=== PATIENT | male | born 1970 | race Caucasian/White ===

== ENCOUNTER → 2016-07-20 | Outpatient (CLI) | payer OTHER ==
[~2016-07-20] MED LIST: ALBU1AER9 INH; GLC500 PO; LANS30CA12 PO; LXP/20 PO
--- NOTE | 2016-07-20 15:50 | DIAGNOSTIC IMAGING REPORT ---
LEFT THIGH ULTRASOUND CLINICAL HISTORY: Left leg pain after fall. COMPARISON STUDY: None. FINDINGS: There is a a 2.5 x 1.8 x 0.5 cm focus of fluid within the mid hamstring muscles. This consistent with an intramuscular tear. In addition, deep to the junction of the left gluteal/proximal posterior thigh there is an 11.3 x 3.3 x 7.7 cm complex fluid collection. This favors a hematoma surrounding the torn hamstring tendon complex. The serpiginous echogenic material within this fluid collection likely represents the retracted and torn tendon. IMPRESSION: 1. Complex fluid collection deep to the left gluteal/proximal posterior thigh junction which measures 11.3 x 7.7 x 3.3 cm. This favors a hematoma surrounding a full-thickness tear of the retracted hamstring tendon complex. This can be confirmed with MRI. 2. There is also a 2.5 x 1.8 x 0.5 cm intramuscular fluid collection within the mid hamstring muscles. This is consistent with an intramuscular tear/hematoma. Electronically signed by: Meliton Arce M.D. 07/20/2016 3:48 PM Dictated Date/Time: 07/20/2016 3:38 PM
== END | disposition home or self-care (01) ==
LOC: C.ULTRBC 14:57
PROVIDERS: ATTEND Internal Medicine Geriatric Medicine
DX: M79.605 Pain in left leg (principal); R93.6 Abnormal findings on diagnostic imaging of limbs

== ENCOUNTER → 2017-07-16 | Outpatient (CLI) | payer OTHER ==
--- NOTE | 2017-07-17 05:13 | PAP/PSG TECHNICIAN REPORT ---
[facility] [place] [facility] Polysomnogram Report Study name: None Report date: 07/17/2017 Study date: 07/16/2017 Referring Physician: Jocelyne Simon PA-C Name: PRAMOD PEDRAZA Interpreting Physician: Ac Wolfe M.D. Date of : 1970 [place]: Hanane Bustamante RPSGT. Sex: Male Age: 47 Study Type: PSG PAP Weight: 321 lbs 21.5 IN Height: 47 years, Height 5' 10" Neck Circum: BMI: 46.05 Medications: BUPROPION 100 MG, ESCITALORPAM OXALATE 20 MG, FAMOTIDINE 20 MG, OMEPRAZOLE 20 MG, LISINOPRIL HYDROCHLOROTHIAZIDE 20-12.5 MG, METFORMIN 500 MG, ROPINIROLE 0.5 MG Patient History 47 yr-old male here for a CPAP update study. He has been using CPAP for many years and has no problems. He states that he cannot sleep without it. He has gained some weight since the last study. He is back to assess his pressure settings and to satisfy DOT requirements. His [place] scale is 0. The test was started on room air and 4 CMH2O. The pressure was then increased to 7 CMH2O at his request for more air. ETCO2 testing was not utilized during this study. He requested to get up at 4:30 am for work. Room 1 Parameters Monitored NPSG: E1-M2, E2-M1, Fp1-M2, Fp2-M1, F3-M2, F4-M2, F4-M1, C3-M2, C4-M2, C4-M1, O1-M2, O2-M2, O2-M1, T3-M2, T4-M1, P3-M2, P4-M1, CHIN1, CHIN2, HR, EKG, Legs, PFLOW, SNOR, FLOW, CFLOW, Tidal Volume, THOR, ABDO, SpO2, PLTH, CPRESS, ETCO2 Wave, ETCO2, pH Sleep Architecture Sleep Stages Time at Lights Off 8:45:04 PM STAGES Time (min.) TST (%) Time at Lights On 4:31:04 AM Wake 194.5 -- Total Recording Time (TRT) 466.00 min. N1 71.0 26 Total Sleep Period (TSP) 428.0 min. N2 132.0 49 Total Sleep Time (TST) 271.5min. N3 26.0 10 Awake Time 194.5 min. REM 42.5 16 Wake after Sleep Onset 156.5 min. Sleep Efficiency (SE) 58 % Sleep Onset Latency (RAY) 38.0 min. Number of Stage 1 Shifts None Awakenings 30 Stage Changes 106 Number of REM periods 2 REM 42.5 16 REM Latency 309.5 min. NREM 229.0 84 Body Position Analysis Supine Right Left Side Prone Vertical Total Sleep Time (min.) 53.9 185.7 49.6 235.35 0.0 0.0 Total Sleep Time (%) 13% 68% 18% 87 0% N/A% Total Sleep Time REM (min.) 25.5 17.0 0.0 None 0.0 0.0 Total Sleep Time NREM (min.) 10.6 168.7 49.6 None 0.0 0.0 Intermittent Wake (min.) 17.8 100.3 76.4 None 0.0 0.0 Total Sleep Period (%) 11% None None None None None Arousals Myoclonus (PLM) * Events Count Index Events Count Index Spontaneous 39 9 Events Awake (PLMW) 145 44.7 Respiratory 9 2.2 Events Asleep w/ Arousal (PLMA) 35 7.7 PLM 34 8 Events Asleep w/o Arousal (PLMS) 325 71.8 Snoring 24 5 Total Asleep 360 79.6 Total 106 23 Total 505 65 Respiratory Analysis * CA OA MA CH H RERA Total Count 0 1 0 0 58 5 59 Index 0.0 0.2 0.0 0 12.8 1 14.1 Mean Duration 0.0 12.4 0.0 0.00 16.9 18.9 16.9 Longest Duration 0.0 12.4 0.0 0.00 0.0 21.1 27.4 Respiratory Event Summary Total Supine ~Supine Right Left Prone REM NREM Apneas Count 1 0 1 1 0 N/A 0 1 Index 0.2 0 0 0.3 0.0 N/A 0 0 Hypopneas (4% Desat) Count 58 1 57 52 5 N/A 0 58 Index 12.8 1.7 15 16.8 6.0 N/A 0.0 15.2 Apneas & All Hypopneas Count 59 1 58 53 5 N/A 0 59 Index 13.0 2 15 17 6 N/A 0.0 15.5 Respiratory Events (Car[employer]amp [employer]er+All Hyp+RERA) Count 59 1 63 56 7 N/A 0 59 Index 14.1 2 16 18.1 8.5 N/A 0.0 16.8 Respiratory Related Arousal Count 9 1 10 8 2 N/A 0 10 Index 2.2 0 3 3 2 N/A 0 3 Snoring Analysis Supine Right Left Prone REM NREM Total Snore duration 34.3 min Snores count 103 803 365 N/A 25 1,246 1,271 Snore mean duration 1.6 Sec Snores index 171 259 441 N/A 35.3 326.5 280.9 TST with snoring (%) 12.6% Desaturation Event Summary: Minimum %SpO2 Event Count Mean/Min/Max Duration(sec.) Desaturation Index % Time In Bed > 90 146 22.0 / 0.1 / 57.8 32.2 59.7 86 - 90 53 16.8 / 8.0 / 37.5 17.3 40.2 81 - 85 0 N/A 0.0 0.0 76 - 80 0 N/A 0.0 0.0 71 - 75 0 N/A 0.0 0.0 66 - 70 0 N/A 0.0 0.0 61 - 65 0 N/A 0.0 0.0 56 - 60 0 N/A 0.0 0.0 51 - 55 0 N/A 0.0 0.0 < 50 0 N/A 0.0 0.0 Total REM NREM Awake <50% 0.0 min. 0.0 min. 0.0 min. 0.0 min. 51 - 60% 0.0 min. 0.0 min. 0.0 min. 0.0 min. 61 - 70% 0.0 min. 0.0 min. 0.0 min. 0.0 min. 71 - 80% 0.2 min. 0.0 min. 0.0 min. 0.2 min. 81 - 90% 183.4 min. 10.9 min. 137.6 min. 34.9 min. 91 - 100% 272.4 min. 31.6 min. 91.3 min. 149.5 min. Average 91 91 90 92 Minimum SpO2 79 87 86 79 Desaturation Event Index 20.0 2.8 30.4 11.7 # Desat. Events below 89% 102 N/A 88 14 Time(%) with Saturation below 89% 8.6 0.1 7.5 1.0 Time(min.) with Saturation below 89% 39.3 0.4 34.4 4.5 Time (mins) REM (mins) NREM (mins) % of TST SpO2 Below 90% 115 2 N113 29.4 SpO2 Below 88% 30 0 0 4 Heart Rate Analysis Min (bpm) Max (bpm) Average (bpm) Awake 51 127 74 NREM 50 84 65 REM 54 72 59 Overall 50 84 64 Supplemental O2 Values Minimum O2 level: None Value Start Time End Time [place] Comments Mr. Pedraza slept in the right, left, and supine positions. No cardiac arrhythmias were noted. PLMs were noted. No bruxism noted. CPAP was initiated at +4 CMH2O and up-titrated to a level of +14 CMH2O, Cflex 2. A Mirage Quattro full face mask size medium from [employer] was used during titration. He awoke to use the restroom one time during the night. Mr. Pedraza stated that he did not sleep as well as usual. The final report will be interpreted and signed by a sleep physician. The completed physician report will then be placed in the patient medical record. CPAP REPORT Therapy Detail Time / Page # Comment CPAP 4 cm H2O Full Face Mask Flex Pressure Relief Humidifier on 8:43:28 PM / pg. 65 CPAP 7 cm H2O Full Face Mask Flex Pressure Relief Humidifier on 8:45:22 PM / pg. 69 INCREASED PRESSURE FOR HIS REQUEST FOR MORE AIR. HE IS USED TO STARTING HIS CPAP RIGHT AT 11 CM AT HOME. CPAP 9 cm H2O Full Face Mask Flex Pressure Relief Humidifier on 10:40:22 PM / pg. 299 INCREASED FOR SNORING AND HYPOPNEAS CPAP 11 cm H2O Full Face Mask Flex Pressure Relief Humidifier on 1:09:10 AM / pg. 597 INCREASED FOR HYPOPNEAS CPAP 12 cm H2O Full Face Mask Flex Pressure Relief Humidifier on 1:57:15 AM / pg. 693 INCREASED FOR HYPOPNEAS CPAP 14 cm H2O Full Face Mask Flex Pressure Relief Humidifier on 2:22:26 AM / pg. 743 INCREASED FOR HYPOPNEAS Therapy Event: Therapy (cm H20) 4 7 9 11 12 14 Total Time at Pressure (min.) 0.3 115.0 148.8 48.1 25.2 128.6 TST at Pressure (min.) 0.0 31.8 53.3 45.1 18.7 122.6 # Periods 1 1 1 1 1 1 Sleep Onset (min.) N/A 37.7 0.0 0.0 0.0 0.0 REM Onset (min.) N/A N/A N/A N/A N/A 10.1 Sleep Efficiency % 0 27 35 93 74 95 Wakefulness (%) 100.0 72.3 64.2 6.2 25.8 4.7 Wakefulness (min.) 0.3 83.2 95.5 3.0 6.5 6.0 NREM 1 (%) 0.0 19.4 23.3 7.3 11.9 5.8 NREM 1 (min.) 0.0 22.3 34.7 3.5 3.0 7.5 NREM 2 (%) 0.0 8.3 12.5 86.5 62.3 36.3 NREM 2 (min.) 0.0 9.5 18.6 41.6 15.7 46.6 NREM 3 (%) 0.0 0.0 0.0 0.0 0.0 20.2 NREM 3 (min.) 0.0 0.0 0.0 0.0 0.0 26.0 REM (%) 0.0 0.0 0.0 0.0 0.0 33.0 REM (min.) 0.0 0.0 0.0 0.0 0.0 42.5 # Arousals N/A 41 41 6 9 9 Arousal Index N/A 77.4 46.2 8.0 28.9 4.4 # Snore N/A 89 267 436 196 283 Snore Index N/A 167.9 300.6 580.1 629.7 138.5 AHI N/A 15.1 18.0 37.3 16.1 1.0 AHI Supine N/A N/A N/A N/A N/A 1.7 AHI Non-Supine N/A 15.1 18.0 37.3 16.1 0.7 NREM AHI N/A 15.1 18.0 37.3 16.1 1.5 REM AHI N/A N/A N/A N/A N/A 0.0 RDI N/A 17.0 19.1 38.6 16.1 2.0 # Obstructive N/A 0 1 0 0 0 # Central Ap N/A 0 0 0 0 0 # Mixed N/A 0 0 0 0 0 # Hypopneas N/A 8 15 28 5 2 RERAS N/A 1 1 1 0 2 Total Respiratory Events N/A 9 17 29 5 4 Time Below SpO2 89.00% (min.) 0.0 8.0 8.2 8.7 1.0 8.9 Mean NREM SpO2 (%) N/A 90 90 90 91 90 Mean REM SpO2 (%) N/A N/A N/A N/A N/A 91 Mean Sleep SpO2 (%) N/A 90 90 90 91 91 Min NREM SpO2 (%) N/A 86 86 86 87 87 Min REM SpO2 (%) N/A N/A N/A N/A N/A 87 Position Supine (min.) 0.0 0.0 0.0 0.0 0.0 36.1 Position Non-supine (min.) 0.0 31.8 53.3 45.1 18.7 86.5 LM Index Sleep N/A 156.6 112.6 170.3 102.8 8.3 LM Index NREM N/A 156.6 112.6 170.3 102.8 6.7 LM Index REM N/A N/A N/A N/A N/A 11.3 Mean Heart Rate (bpm) N/A 72 68 67 61 59 Min Heart Rate (bpm) N/A 63 60 59 54 50
--- NOTE | 2017-07-20 12:01 | POLYSOMNOGRAPH REPORT ---
CLINICAL DATA: A 47-year-old male with BMI of 46, referred by Jocelyne Simon for a CPAP update study. He has been on CPAP for years and cannot sleep without it. 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 SLEEP ARCHITECTURE: Total sleep period was 428 minutes. Total sleep time was 271.5 minutes divided between 229 minutes of non-REM sleep and 42.5 minutes of REM sleep. Sleep latency was delayed at 38 minutes. REM latency was delayed at 309.5 minutes. Sleep efficiency was reduced at 58%. Wake after sleep onset was elevated at 156.5 minutes. Sleep consisted of stage N1 26%, stage N2 49%, stage N3 10% and REM 16%. AROUSAL DATA: 106 arousals were recorded for an index of 23 per hour. 39 were spontaneous. 34 were due to PLM events. PERIODIC LIMB MOVEMENT DATA: Severe PLMD was noted. There were 360 limb movements during sleep noted for an index of 79.6 per hour with arousal index of 7.7 per hour. RESPIRATORY DATA: AHI was 13. There was 1 obstructive apneic episode, 12.4 seconds in duration. There were 50 hypopneic episodes with mean duration of 16.9 seconds. OXIMETRY DATA: Mild hypoxemia was seen. Oxygen anastasiya was 86%. Mean saturation was 91%. Time below 88% was 30 minutes. HEART RATE DATA: Heart rates ranged from 50-84 beats per minute. No arrhythmias were noted. [employer] WORKER'S COMMENTS AND TREATMENT SUMMARY: The patient slept in the right, left and supine position. A Mirage Quattro full face mask size medium from [employer] was used. The patient was started on CPAP and was titrated up to a final pressure setting of 14 cm of water pressure. At his final pressure setting, he slept for 122.6 minutes with an AHI of 1. IMPRESSION: Obstructive sleep apnea corrected with CPAP 14 cm of water pressure, C-Flex setting 2 with a Mirage Quattro full face mask size medium from [employer]. RECOMMENDATIONS: The patient's CPAP should be changed to 14 cm of water pressure, C-Flex setting 2. He should be seen back in followup within 90 days to document efficacy and compliance. [facility]
== END | disposition home or self-care (01) ==
LOC: C.NEUR 20:00
PROVIDERS: ATTEND Internal Medicine
DX: G47.30 Sleep apnea, unspecified (principal)

== ENCOUNTER → 2017-07-30 | Outpatient (CLI) | payer OTHER ==
--- NOTE | 2017-07-30 17:51 | DIAGNOSTIC IMAGING REPORT ---
CHEST 2 VIEWS ROUTINE CLINICAL HISTORY: R50.9 [id number] dyspnea COMPARISON STUDY: 09/12/2013 FINDINGS: The bones soft tissues and hemidiaphragms are normal. The cardiomediastinal silhouette is normal. The lungs are clear. The pulmonary vasculature is normal. IMPRESSION: Negative chest. The above report was generated using voice recognition software. It may contain grammatical, syntax or spelling errors. Electronically signed by: Anish Benjamin M.D. 07/30/2017 5:49 PM Dictated Date/Time: 07/30/2017 5:49 PM
== END ==
LOC: C.RAD 17:30
PROVIDERS: ATTEND Internal Medicine
DX: R50.9 Fever, unspecified (principal)